=== PATIENT | male | born 1955 | race Caucasian/White ===

== ENCOUNTER 2016-06-14 22:27 | Emergency (ER) | payer OTHER ==
--- NOTE | 2016-06-15 00:56 | ED ORDER SUMMARY ---
..... Patient: LUDWIG ARAGON OrderSheet [facility] VisitID: [id number] [address] [place] [address] 60y, M Registration Date/Time: 06/14/2016 ORDER SHEET Weight: 88.9 kg (stated) Allergies: Penicillin GENERAL ORDERS: MEDICATION ORDERS: Silver Nitrate Applicator Topical 2 applications (NOW) [facility] (Ack 23:30 HSoule) (0:25 HSoule) Oxymetazoline Nasal [place] now (place at bedside) (:06/14/2016 PHnearlene DO) (Ack 23:30 HSoule) (0:26 HSoule) IV FLUIDS: ORDER SHEET NOTES: [Electronically signed by Beulah Long (01:12 06/15/2016)] [Electronically signed by Gustabo Paris DO (15:50 06/15/2016)] [Electronically locked/signed by Beulah Long (01:12 06/15/2016)]
--- NOTE | 2016-06-15 00:56 | ED NURSING NOTES ---
Clinical Report - Nurses [facility] [address] [place] [address] 06/14/2016 22:27 Patient: LUDWIG ARAGON TRIAGE Triage time 23:Jun 14 2016. Acuity: LEVEL 3. Chief Complaint: NOSEBLEED and (Left Nare). SEPSIS SCREEN: Sepsis Screen: negative. Negative (no infection suspected/documented). --23:09 EthanSunshine loweh 23:02 06/14/16. BP: 154/85. HR: 103. RR: 20. O2 saturation: 95% on room air. Temp: 98 F (oral). Pain level now: 0/10. --23:09 Beulah Long. Weight: 88.9 kg stated. Height/Length: 68 inches Per Patient. BMI: 29.8. --23:06 Beulah Long. Medications Pristiq Oral. --23:05 Ethan, Beulah Lisinopril Oral. --23:05 Ethan, Beulah Nortriptyline HCl Oral. --23:06 Ethan, Beulah Xanax Oral. --23:06 John Longnah. Medication/allergy information source: the patient. --23:09 Beulah Long. Allergies Penicillin. --23:06 Beulah Long. History Arrived by private vehicle. Historian: patient. Accompanied by family. Primary physician (Eun Burdick, DR riley did nasal surgery in [place]). Onset. (3 days ago). ( Patient states he had polyps removed from his left nare about five weeks ago. Over the last three days he has had a pretty constant bloody nose.). PAST MEDICAL HX: Immunizations: up-to-date. SOCIAL HX: Heavy tobacco smoker- 1 pack per day. No alcohol use or drug use. No infectious disease exposure. ABUSE ASSESSMENT: No report of abuse. FALL RISK ASSESSMENT: Fall risk assessment completed. No fall risk identified. NUTRITIONAL RISK ASSESSMENT: The nutritional risk assessment revealed no deficiencies. FUNCTIONAL ASSESSMENT: Functional assessment: no impairments noted. LEARNING NEEDS ASSESSMENT: The learning needs assessment revealed no barriers. SKIN INTEGRITY ASSESSMENT: Skin integrity risk assessment completed. No skin integrity risk identified. --23:09 Beulah Long. PROBLEMS: Nasal polyp. Hypertension. --23:07 Beulah Long. ADDITIONAL SURGERIES: Knee Surgery. Nasal polyp removal . Rotator Cuff Surgery. --23:07 Beulah Long. Interventions ID band on patient. To treatment room. --23:09 Beulah Long. PHYSICAL ASSESSMENT 23:06/14/16. Ambulatory to room. GENERAL / NEURO / PSYCH: Alert. Appears in no acute distress. HEENT: Active nasal bleeding present (Bleeding from left). SKIN: Skin is warm and dry. --23:10 Beulah Long. NURSING PROGRESS NOTES 23:11 06/14/16. Head of bed elevated. Reassurance given to the patient. Two patient identifiers checked. Call light placed in reach. Side rails up x 1. Bed placed in lowest position. Brakes of bed on. Patient ready for evaluation- chart flagged. --23:11 Beulah Long Pulse oximeter and NIBP monitor placed on patient; monitor alarms on. --23:12 Beulah Long 23:58 06/14/16. BP: 123/96. HR: 89. RR: 20. O2 saturation: 92% on room air. --23:59 Beulah Long 00:11 06/15/2016 Oxymetazoline (Nasal [place]) Nasal [place] 2 spray given. Given in the left nare. Allergies verified and confirmed 5 rights. (Administered by Provider). --00:26 Beulah Long 00:15 06/15/2016 SILVER NITRATE APPLICATOR (Silver Nitrate Applicator) Topical Topical Solution 1 application. Allergies verified and confirmed 5 rights. (By provider). --00:25 Beulah Long ( Patient still having some bleeding from nose. Provider aware.). --00:35 Beulah Long. DISPOSITION / DISCHARGE Condition at departure: improved and stable. No learning barriers present. Discharge instructions provided and reviewed with the patient and spouse. Reviewed need for increased fluid intake. Work note given (Do not work for two days). Patient verbalized understanding. Written instructions provided in Kazakh. ( Follow up with ENT tomorrow to have packing removed. Return if bleeding persists through the packing. Afrin spray as needed.). The patient was discharged by the physician. He was discharged home and accompanied by spouse. He left the Emergency Department ambulatory and via private vehicle. Spouse driving. --01:04 Beulah Long 01:02 06/15/16. BP: 113/68. HR: 99. RR: 20. O2 saturation: 95% on room air. Temp: deferred. Pain level now: 0/10. --01:04 Beulah Long. Locked/Released at 06/15/2016 1:12 by Beulah Long,
--- NOTE | 2016-06-15 00:56 | ED CLINICAL REPORT ---
Clinical Report - Physicians/Mid Levels [facility] [address] [place] [address] 06/14/2016 22:27 Patient: LUDWIG ARAGON Time Seen: 23:16. Arrived- By private vehicle. Historian- patient and family. HISTORY OF PRESENT ILLNESS Chief Complaint: NOSEBLEED. Since about 3 days ago and is still present but is better now. It was gradual in onset and has been intermittent and waxing/waning. Location- left nare. The patient has had moderate intermittent epistaxis. The bleeding seems to be coming from the left nare. No dizziness. Similar symptoms previously: Recent medical care: The patient was seen recently by a health care provider. ( DR riley did nasal surgery in [place] - Patient states he had polyps removed from his left nare about five weeks ago. Over the last three days he has had a pretty constant bloody nose.). REVIEW OF SYSTEMS No fever, excessive bruising, bleeding from gums, headache or difficulty breathing. No chest pain, nausea, vomiting, abdominal pain or black stools. No difficulty with urination or bloody stools. All systems otherwise negative, except as recorded above. PAST HISTORY Primary physician (Eun Burdick, DR riley did nasal surgery in [place]). No history of bleeding disorders. Hypertension. Anxiety. SURGERIES: Knee Surgery. Nasal polyp removal . Rotator Cuff Surgery. No history of bleeding disorders. Medications: Xanax Oral. Nortriptyline HCl Oral. Lisinopril Oral. Pristiq Oral. Allergies: Penicillin. SOCIAL HISTORY Smoker- current status unknown. No alcohol use or drug use. ADDITIONAL NOTES The nursing notes have been reviewed. PHYSICAL EXAM Vital Signs: 06/14/2016 23:02 BP: 154/85. HR: 103. RR: 20. O2 saturation: 95%. Temp: 98 F. Pain level now: 0/10. Appearance: Alert. Anxious. Patient in mild distress. Eyes: Eyes normal inspection. No pale conjunctivae or scleral icterus. Nose: Mild left-nare active bleeding anteriorly and from uncertain location (definite small anterior site, but may have posterior site as well). Small amount of right-nare dried blood and moderate amount of left-nare dried blood. Throat: Pharynx normal. No bleeding from nasopharynx or tonsillar exudate. The mucous membranes are not dry or pale. Neck: Normal inspection. Neck supple. CVS: Normal heart rate and rhythm. Heart sounds normal. Respiratory: No respiratory distress. Breath sounds normal. Abdomen: Soft and nontender. Back: Normal inspection. Skin: Skin warm and dry. Normal skin color. Normal skin turgor. Extremities: Extremities exhibit normal ROM. No lower extremity edema. Neuro: Oriented X 3. No motor deficit. LABS, X-RAYS, AND EKG Pulse Oximetry: 06/14/2016 23:02 O2 saturation: 95%. (FIO2 - room air). Interpretation: normal. PROGRESS AND PROCEDURES Management of Epistaxis: The patient was cooperative. Placed on pulse oximeter. Bleeding site was anterior source on the left side. Examined with nasal speculum. On the left, applied silver nitrate for cauterization and a topical sponge. Following the procedure the patient was stable and there was no further bleeding. No complications. Course of Care: Afrin 2 sprays each nostril. AgNO. After Afrin, AgNO3 and Merocel packing, no further bleeding appreciated. Patient/family counseled. Prior records not ordered. Disposition: Discharged. Condition: stable and improved. CLINICAL IMPRESSION Acute anterior, posterior, mild epistaxis Essential hypertension. History of anxiety disorder. INSTRUCTIONS Do not work for two days. Drink plenty of fluids. Do not smoke. Seek medical help to quit smoking. (Leave nasal sponge packing in place until seen by ENT tomorrow. You may use the Afrin nasal spray once more tonight if any recurrent bleeding. Return for worsening bleeding or any concerns). Warnings: Further evaluation is necessary in order to conduct further tests. It is very important to follow up with a physician. GENERAL WARNINGS: Return or contact your physician immediately if your condition worsens or changes unexpectedly, if not improving as expected, or if other problems arise. Your Current Medications: CONTINUE TAKING THE FOLLOWING MEDICATIONS: Lisinopril Oral. Nortriptyline HCl Oral. Pristiq Oral. Xanax Oral. OTC Medications: Afrin nasal spray (Available over the counter): Take according to label instructions. Follow-up: Follow up with your doctor tomorrow. Follow up with an ear, nose and throat physician (an fulfillment coordinator) Dr Riley or colleague tomorrow. Screening today revealed the patient's blood pressure to be in the hypertensive range. The patient should follow up with a primary care provider for blood pressure management. (Electronically signed by Gustabo Paris DO 06/15/2016 15:50)
--- NOTE | 2016-06-15 00:56 | ED ORDER SUMMARY ---
..... Patient: LUDWIG ARAGON OrderSheet [facility] VisitID: [id number] [address] [place] [address] 60y, M Registration Date/Time: 06/14/2016 ORDER SHEET Weight: 88.9 kg (stated) Allergies: Penicillin GENERAL ORDERS: MEDICATION ORDERS: Silver Nitrate Applicator Topical 2 applications (NOW) (23:06/14/2016 [facility] [[email or web address] PATEL) (Ack 23:30 HSoule) (0:25 HSoule) Oxymetazoline Nasal [place] now (place at bedside) (:06/14/2016 PHararlene DO) (Ack 23:30 HSoule) (0:26 HSoule) IV FLUIDS: ORDER SHEET NOTES: [Electronically signed by Beulah Long (01:12 06/15/2016)] [Electronically signed by Gustabo Paris DO (15:50 06/15/2016)] [Electronically locked/signed by Beulah Long (01:12 06/15/2016)]
--- NOTE | 2016-06-15 00:56 | ED CLINICAL REPORT ---
Clinical Report - Physicians/Mid Levels [facility] [address] [place] [address] 06/14/2016 22:27 Patient: LUDWIG ARAGON Time Seen: 23:16. Arrived- By private vehicle. Historian- patient and family. HISTORY OF PRESENT ILLNESS Chief Complaint: NOSEBLEED. Since about 3 days ago and is still present but is better now. It was gradual in onset and has been intermittent and waxing/waning. Location- left nare. The patient has had moderate intermittent epistaxis. The bleeding seems to be coming from the left nare. No dizziness. Similar symptoms previously: Recent medical care: The patient was seen recently by a health care provider. ( DR riley did nasal surgery in [place] - Patient states he had polyps removed from his left nare about five weeks ago. Over the last three days he has had a pretty constant bloody nose.). REVIEW OF SYSTEMS No fever, excessive bruising, bleeding from gums, headache or difficulty breathing. No chest pain, nausea, vomiting, abdominal pain or black stools. No difficulty with urination or bloody stools. All systems otherwise negative, except as recorded above. PAST HISTORY Primary physician (Eun Burdick, DR riley did nasal surgery in [place]). No history of bleeding disorders. Hypertension. Anxiety. SURGERIES: Knee Surgery. Nasal polyp removal . Rotator Cuff Surgery. No history of bleeding disorders. Medications: Xanax Oral. Nortriptyline HCl Oral. Lisinopril Oral. Pristiq Oral. Allergies: Penicillin. SOCIAL HISTORY Smoker- current status unknown. No alcohol use or drug use. ADDITIONAL NOTES The nursing notes have been reviewed. PHYSICAL EXAM Vital Signs: 06/14/2016 23:02 BP: 154/85. HR: 103. RR: 20. O2 saturation: 95%. Temp: 98 F. Pain level now: 0/10. Appearance: Alert. Anxious. Patient in mild distress. Eyes: Eyes normal inspection. No pale conjunctivae or scleral icterus. Nose: Mild left-nare active bleeding anteriorly and from uncertain location (definite small anterior site, but may have posterior site as well). Small amount of right-nare dried blood and moderate amount of left-nare dried blood. Throat: Pharynx normal. No bleeding from nasopharynx or tonsillar exudate. The mucous membranes are not dry or pale. Neck: Normal inspection. Neck supple. CVS: Normal heart rate and rhythm. Heart sounds normal. Respiratory: No respiratory distress. Breath sounds normal. Abdomen: Soft and nontender. Back: Normal inspection. Skin: Skin warm and dry. Normal skin color. Normal skin turgor. Extremities: Extremities exhibit normal ROM. No lower extremity edema. Neuro: Oriented X 3. No motor deficit. LABS, X-RAYS, AND EKG Pulse Oximetry: 06/14/2016 23:02 O2 saturation: 95%. (FIO2 - room air). Interpretation: normal. PROGRESS AND PROCEDURES Management of Epistaxis: The patient was cooperative. Placed on pulse oximeter. Bleeding site was anterior source on the left side. Examined with nasal speculum. On the left, applied silver nitrate for cauterization and a topical sponge. Following the procedure the patient was stable and there was no further bleeding. No complications. Course of Care: Afrin 2 sprays each nostril. AgNO. After Afrin, AgNO3 and Merocel packing, no further bleeding appreciated. Patient/family counseled. Prior records not ordered. Disposition: Discharged. Condition: stable and improved. CLINICAL IMPRESSION Acute anterior, posterior, mild epistaxis Essential hypertension. History of anxiety disorder. INSTRUCTIONS Do not work for two days. Drink plenty of fluids. Do not smoke. Seek medical help to quit smoking. (Leave nasal sponge packing in place until seen by ENT tomorrow. You may use the Afrin nasal spray once more tonight if any recurrent bleeding. Return for worsening bleeding or any concerns). Warnings: Further evaluation is necessary in order to conduct further tests. It is very important to follow up with a physician. GENERAL WARNINGS: Return or contact your physician immediately if your condition worsens or changes unexpectedly, if not improving as expected, or if other problems arise. Your Current Medications: CONTINUE TAKING THE FOLLOWING MEDICATIONS: Lisinopril Oral. Nortriptyline HCl Oral. Pristiq Oral. Xanax Oral. OTC Medications: Afrin nasal spray (Available over the counter): Take according to label instructions. Follow-up: Follow up with your doctor tomorrow. Follow up with an ear, nose and throat physician (an color adviser) Dr Riley or colleague tomorrow. Screening today revealed the patient's blood pressure to be in the hypertensive range. The patient should follow up with a primary care provider for blood pressure management. (Electronically signed by Gustabo Paris DO 06/15/2016 15:50)
--- NOTE | 2016-06-15 15:51 | ED DISCHARGE INSTRUCTIONS ---
Patient: LUDWIG ARAGON General Instructions [facility] VisitID: [id number] [place] [address] 60y, M Registration Date/Time: 06/14/2016 Acute anterior, posterior, mild epistaxis Essential hypertension. History of anxiety disorder. INSTRUCTIONS Do not work for two days. Drink plenty of fluids. Do not smoke. Seek medical help to quit smoking. (Leave nasal sponge packing in place until seen by ENT tomorrow. You may use the Afrin nasal spray once more tonight if any recurrent bleeding. Return for worsening bleeding or any concerns). Warnings: Further evaluation is necessary in order to conduct further tests. It is very important to follow up with a physician. GENERAL WARNINGS: Return or contact your physician immediately if your condition worsens or changes unexpectedly, if not improving as expected, or if other problems arise. Your Current Medications: CONTINUE TAKING THE FOLLOWING MEDICATIONS: Lisinopril Oral. Nortriptyline HCl Oral. Pristiq Oral. Xanax Oral. OTC Medications: Afrin nasal spray (Available over the counter): Take according to label instructions. Follow-up: Follow up with your doctor tomorrow. Follow up with an ear, nose and throat physician (an center sales and service associate) Dr [address] or colleague tomorrow. Screening today revealed the patient's blood pressure to be in the hypertensive range. The patient should follow up with a primary care provider for blood pressure management. ADDITIONAL INFORMATION Nosebleed [Adult] Bleeding from the nose most commonly occurs due to injury or drying and cracking of the inner lining of the nose. This can occur during a "common cold," "hay fever" attack, a very hot day, or from dry air in the winter. High blood pressure and hardening of the arteries (atherosclerosis) may also cause nosebleeds. If the bleeding site is found, it may be treated with a chemical or heat or electricity to cause a blood clot to form (cauterized). If the bleeding continues after cautery or if the bleeding site cannot be found, a packing may be placed in your nose to apply pressure and stop the bleeding. The packing may be made of gauze or sponge. A small balloon catheter is sometimes used. These need to be removed by your doctor. Some types of packing dissolve on their own. Home Care: If a packing was put in your nose, unless told otherwise, do not pull on it or try to remove it yourself. You will be given an appointment to have it removed. You may also have been given antibiotics to prevent a sinus infection. If so, complete all the medicine. Do not blow your nose for 12 hours after the bleeding stops. This will allow a strong blood clot to form. Do not pick your nose. This may restart bleeding. Avoid alcohol and hot liquids for the next two days. Alcohol or hot liquids in your mouth can dilate blood vessels in your nose and cause bleeding to start again. Do not take ibuprofen (Advil, Motrin), naprosyn (Aleve) or aspirin-containing medicines since these thin the blood and may promote nose bleeding. You may take Tylenol (acetaminophen) for pain, unless another pain medicine was prescribed. If the bleeding starts again, sit up and lean forward to prevent swallowing blood. Pinch your nose tightly for exactly 5 minutes (watch the clock). If bleeding is not controlled, continue to pinch and call your doctor or return to this facility. If high blood pressure was a cause for your nosebleed, have your blood pressure checked again tomorrow. If you have a "cold" or "hay fever" or dry nasal membranes, lubricate the nasal passages by applying a small amount of Vaseline inside the nose with a Q-tip twice a day (morning and night). Avoid overheating your home, which can dry the air and worsen your condition. Follow Up with your doctor as advised for packing removal. Nasal packing should be rechecked or removed within 2-3 days. Get Prompt Medical Attention if any of the following occur: Another nosebleed that you cannot control Dizziness, weakness or fainting Fever of 100.4F (38C) or higher, or as directed by your healthcare provider Headache Sinus or facial pain Shortness of breath or trouble breathing High Blood Pressure --Established High Blood Pressure (Hypertension) is a chronic disease. The cause is unknown in most cases. It can usually be controlled with lifestyle changes and/or medicines. Symptoms of high blood pressure may include headache, dizziness, visual changes, chest pain and shortness of breath. Sometimes it causes no symptoms at all. However, even if there are no symptoms, untreated high blood pressure increases the risk of heart attack, also known as acute myocardial infarction, or AMI, and stroke. It is a serious health risk and should not be ignored. A normal blood pressure is 120/80 or less. The first (top) number is the "systolic" pressure. The second (bottom) number is the "diastolic" pressure. Hypertension exists when either the top number is 140 or higher, OR the bottom number is 90 or higher on repeated measurements. Home Care: All patients with high blood pressure should do the following to lower their pressure. If you are on medicines, then these methods may reduce or eliminate your need for medicines in the future. Begin a weight loss program if you are overweight. Reduce your salt intake. Avoid high salt foods (olives, pickles, smoked meats, salted potato chips, etc.). Do not add salt to your food at the table. Use only small amounts of salt when cooking. Begin an exercise program. Discuss with your doctor what type of exercise program would be best for you. It doesn't have to be difficult. Even brisk walking for 20 minutes three times a week is a good form of exercise. Avoid medicines which contain heart stimulants. This includes many cold and sinus decongestant pills and sprays as well as diet pills. Check the warnings about hypertension on the label. Stimulants such as amphetamine or cocaine could be lethal for someone with hypertension. Never take these. Limit your caffeine intake or switch to caffeine-free products. Stop smoking. If you are a long-time smoker, this can be hard. Enroll in a stop-smoking program to improve your chance of success. Learning how to handle stress better is an important part of any program to lower blood pressure. Learn about relaxation methods such as meditation, yoga or biofeedback. If medicines were prescribed, take them exactly as directed. Missing doses may cause your blood pressure get out of control. Consider buying an automatic blood pressure machine (available at most pharmacies). Use this to monitor your blood pressure at home and report the results to your doctor. Follow Up: Regular visits to your own physician for blood pressure checks and medicine adjustment is an important part of your care. Make a follow-up appointment as directed by our staff. Get Prompt Medical Attention if any of the following occur: Chest pain or shortness of breath Severe headache Throbbing or rushing sound in the ears Nosebleed Sudden severe abdominal pain Extreme drowsiness, confusion or fainting Dizziness or vertigo (dizziness with spinning sensation) Weakness of an arm or leg or one side of the face Difficulty with speech or vision How To Quit Smoking Smoking is one of the hardest habits to break. About half of all those who have ever smoked have been able to quit, and most of those (about 70%) who still smoke want to quit. Here are some of the best ways to stop smoking. Keep Trying: It takes most smokers about 8 tries before they are finally able to fully quit. So, the more often you try and fail, the better your chance of quitting the next time! So, don't give up! Go Cold [place]: Most ex-smokers quit cold turkey. Trying to cut back gradually doesn't seem to work as well, perhaps because it continues the smoking habit. Also, it is possible to fool yourself by inhaling more while smoking fewer cigarettes. This results in the same amount of nicotine in your body! Get Support: Support programs can make an important difference, especially for the heavy smoker. These groups offer lectures, methods to change your behavior and peer support. Call the [employer] national Quitline for more information. 122-ZBND-KWB (137-012-5494). Low-cost or free programs are offered by many hospitals, local chapters of the [place] [employer] (704-254-1407) and the [place] [employer] (642-738-7836). Support at home is important too. Non-smokers can help by offering praise and encouragement. If the smoker fails to quit, encourage them to try again! [id number] Medicines: For those who can't quit on their own, Nicotine Replacement Therapy (NRT) may make quitting much easier. Certain aids such as the nicotine patch, gum and lozenge are available without a prescription. However, it is best to use these under the guidance of your doctor. The skin patch provides a steady supply of nicotine to the body. Nicotine gum and lozenge gives temporary bursts of low levels of nicotine. Both methods take the edge off the craving for cigarettes. WARNING: If you feel symptoms of nicotine overdose, such as nausea, vomiting, dizziness, weakness, or fast heartbeat, stop using these and see your doctor. Prescription Medicines: After evaluating your smoking patterns and prior attempts at quitting, your doctor may offer a prescription medicine such as bupropion (Zyban, Wellbutrin), varenicline (Chantix, Champix), a niocotine inhaler or nasal spray. Each has its unique advantage and side effects which your doctor can review with you. Health Benefits Of Quitting: The benefits of quitting start right away and keep improving the longer you go without smokin minutes: blood pressure and pulse return to normal 8 hours: oxygen levels return to normal 2 days: ability to smell and taste begins to improve as damaged nerves start to regrow 2-3 weeks: circulation and lung function improves 1-9 months: decreased cough, congestion and shortness of breath; less tired 1 year: risk of heart attack decreases by half 5 years: risk of lung cancer decreases by half; risk of stroke becomes the same as a non-smoker For information about how to quit smoking, visit the following links: National Cancer [place] , Clearing the Air, Quit Smoking Today - an online booklet. http://www.smokefree.gov/pubs/clearing_the_air.pdf Smokefree.gov http://smokefree.gov/ QuitNet http://www.quitnet.com/ You have been given the following additional information: Epistaxis (Adult) Hypertension, Established Smoking Cessation Do not work for two days. (Electronically signed by Gustabo Paris DO 06/15/2016 15:50)
--- NOTE | 2016-06-15 15:51 | ED MED RECONCILIATION SUMMARY ---
Patient: LUDWIG ARAGON Medication Reconciliation Report [facility] VisitID: [id number] [address] [place] [address] 60y, M Registration Date/Time: 06/14/2016 Weight: 88.9 kg Height/Length: 68 in. BMI: 29.8 ALLERGIES: Penicillin The patient's Home Medications are listed below: CONTINUE TAKING THE FOLLOWING MEDICATIONS: Lisinopril Oral Nortriptyline HCl Oral Pristiq Oral Xanax Oral The source(s) of the original Home Medication information: patient The following Medications were given to the patient in the Emergency Department: SILVER NITRATE APPLICATOR [TOPICAL] Topical 1 application, administered: 06/15/2016 12:15:00 AM Oxymetazoline [Nasal [place]] Nasal [place] 2 spray, administered: 06/15/2016 12:11:00 AM The following Medications were prescribed to the patient: Afrin nasal spray (Available over the counter): Take according to label instructions. -- Gustabo Paris DO
--- NOTE | 2016-06-15 15:51 | ED MAR SUMMARY ---
..... Medication Administration Record [facility] [address] [place] [address] Patient: LUDWIG ARAGON Visit ID: [id number] 60y, M Weight: 88.9 kg Height/Length: 68 in BMI: 29.8 ALLERGIES: Penicillin Given 00:11 06/15/2016 Beulah Long, Medication Administered: OXYMETAZOLINE [NASAL SPRAY] (NASAL SPRAY), Dose: 2 spray [place] Nasal [place]. Medication Ordered: Oxymetazoline Nasal [place] now (place at bedside). Given 00:15 06/15/2016 Beulah Long, Medication Administered: SILVER NITRATE APPLICATOR [TOPICAL] (SILVER NITRATE APPLICATOR), Dose: 1 application Topical Solution Topical. Medication Ordered: Silver Nitrate Applicator Topical 2 applications (NOW).
--- NOTE | 2016-06-15 15:51 | ED MAR SUMMARY ---
..... Medication Administration Record [facility] [address] [place] [address] Patient: LUDWIG ARAGON Visit ID: [id number] 60y, M Weight: 88.9 kg Height/Length: 68 in BMI: 29.8 ALLERGIES: Penicillin Given 00:11 06/15/2016 Beulah Long, Medication Administered: OXYMETAZOLINE [NASAL SPRAY] (NASAL SPRAY), Dose: 2 spray [place] Nasal [place]. Medication Ordered: Oxymetazoline Nasal [place] now (place at bedside). Given 00:15 06/15/2016 Beulah Long, Medication Administered: SILVER NITRATE APPLICATOR [TOPICAL] (SILVER NITRATE APPLICATOR), Dose: 1 application Topical Solution Topical. Medication Ordered: Silver Nitrate Applicator Topical 2 applications (NOW).
--- NOTE | 2016-06-15 15:51 | ED MED RECONCILIATION SUMMARY ---
Patient: LUDWIG ARAGON Medication Reconciliation Report [facility] VisitID: [id number] [address] [place] [address] 60y, M Registration Date/Time: 06/14/2016 Weight: 88.9 kg Height/Length: 68 in. BMI: 29.8 ALLERGIES: Penicillin The patient's Home Medications are listed below: CONTINUE TAKING THE FOLLOWING MEDICATIONS: Lisinopril Oral Nortriptyline HCl Oral Pristiq Oral Xanax Oral The source(s) of the original Home Medication information: patient The following Medications were given to the patient in the Emergency Department: SILVER NITRATE APPLICATOR [TOPICAL] Topical 1 application, administered: 06/15/2016 12:15:00 AM Oxymetazoline [Nasal [place]] Nasal [place] 2 spray, administered: 06/15/2016 12:11:00 AM The following Medications were prescribed to the patient: Afrin nasal spray (Available over the counter): Take according to label instructions. -- Gustabo Paris DO
== END 2016-06-15 01:00 | disposition home or self-care (01) ==
LOC: ED SRH 22:27
DX: I10 Essential (primary) hypertension (principal); R04.0 Epistaxis; Z86.59 Personal history of other mental and behavioral disorders; Z79.899 Other long term (current) drug therapy; Z88.0 Allergy status to penicillin